=== PATIENT | female | born 1980 | race Two or more races ===

== ENCOUNTER → 2025-06-12 | Outpatient (CLI) | payer MEDICAID, SELFPAY ==
--- NOTE | 2025-06-12 09:30 | XR_ITS ---
Examination: Screening digital mammography, bilateral Computer aided detection 3-D breast Tomosynthesis, bilateral Date and time of exam: 10 5, 10:07 a.m. Comparisons: None available. If prior mammograms can be obtained recommend comparison with today's exam. Indications: Screening Technique: Nonmagnified MLO, CC views of the breasts to been obtained, reconstructed from 3-D Tomosynthesis images. R2 computer aided detection program utilized for evaluation of suspicious masses and/or abnormal calcifications. 3-D Tomosynthesis images obtained. Technologist: Findings: The breasts are heterogeneously dense, which may obscure small masses. No evidence of abnormal masses or suspicious calcifications. Impression: BI-RADS category 1: Negative findings (within normal) Recommend 1 year follow-up mammogram
== END | disposition home or self-care (01) ==
LOC: CDIM 09:50
PROVIDERS: Referring Provider Physician Assistant Medical; Visit Provider Physician Assistant Medical
DX: Z12.31 Encounter for screening mammogram for malignant neoplasm of breast (principal); R92.313 Mammographic fatty tissue density, bilateral breasts
CPT/HCPCS: 77063; 77067

== ENCOUNTER 2025-07-08 20:31 | Emergency (ER) | payer MEDICAID, SELFPAY ==
[2025-07-08] VITALS (10 sets, daily range): BP systolic 137–222; BP diastolic 83–122; PULSE 54–80; RESP 16–18; TEMP 37–37.8; O2SAT 93–99; BMI 30.7
--- NOTE | 2025-07-08 21:01 | EKG_ITS ---
[facility] Test Date: 2025-07-08 Pat Name: TOAN VAZQUEZ Department: Room: - Gender: Female [employer]: : 1980 Requested By: ED Temporary Provider Order Number: [id number] Reading MD: ED Temporary Provider Measurements Intervals [place] Rate: 73 P: 22 [place]: 132 QRS: 27 QRSD: 81 T: 21 QT: 402 QTc: 445 Interpretive Statements SINUS RHYTHM WITH SINUS ARRHYTHMIA Compared to ECG 05/28/2023 13:51:11 No significant changes /store/S0/[id number].pdf
--- NOTE | 2025-07-08 21:13 | PD.EDADULT ---
ED General RME/HPI General Chief complaint: General Adult/Misc Complain Stated complaint: HIGH BLOOD PRESSURE, HEAD PRESSURE Time Seen by Provider: 07/08/25 21:13 Arrival date/time: 07/08/25 20:31 RME / HPI RME / HPI narrative: Dr. Tinoco?s Main ED Evaluation: 45yo female with longstanding history HTN on verapamil and losartan, took her usual medications this AM and developed a headache described as throbbing with right facial paresthesias x 1 hour INTERVENTIONAL SALE CONSULTANT. Upon taking her blood pressure, there was noted marked elevation in the 200/120 range prompting her to take a second dose of her losartan INTERVENTIONAL SALE CONSULTANT. No confusion, dysarthria, focal UE/LE motor weakness, or gait disturbance. Related Data Home Medications ?Medication ?Instructions ?Recorded ?Confirmed amlodipine 5 mg tablet 5 mg PO QDAY 03/22/20 03/22/20 losartan 100 1 tab PO QDAY 03/22/20 03/22/20 mg-hydrochlorothiazide 25 mg tablet Previous Rx's ?Medication ?Instructions ?Recorded hydrocodone 5 mg-acetaminophen 325 1 tab PO BID PRN pain #8 tabs 09/29/22 mg tablet ibuprofen 600 mg tablet 600 mg PO TID PRN pain #14 tabs 09/29/22 Allergies Allergy/AdvReac Type Severity Reaction Status Date / Time No Known Allergies Allergy Verified 07/08/25 20:33 Review of Systems Review of Systems Systems Reviewed: All systems reviewed, normal except as documented Past Medical History Past Medical History NEUROLOGIC: Negative Neurological Disorders or Seizures CARDIAC: Positive Cardiac Disorders, Hypercholesterolemia (STOP 2019 PER ) and Hypertension (TAKES MED); Negative Congestive Heart Failure, Edema, Cellulitis or Varicose Veins RESPIRATORY: Negative Chronic Obstructive Pulmonary Disease (COPD), Pneumonia, Tuberculosis or Sleep Apnea GASTROINTESTINAL: Positive Gastrointestinal Disorders and Gall Bladder Disease (FOR THIS PROC); Negative Hepatitis GENITOURINARY: Negative Genitourinary Disorders or Renal Disease REPRODUCTIVE: Positive Previous Pregnancies () MUSCULOSKELETAL: Negative Musculoskeletal Disorders ENDOCRINE: Positive Endocrine Disorders; Negative Diabetes Mellitus Type 1, Diabetes Mellitus Type 2 or Hypothyroidism HEMATOLOGIC: Negative Blood Disorders OTHER HISTORY: Negative Hospitalization, Autoimmune Disease, Shingles, Falls, Anesthesia Reactions, Chemotherapy, Radiation Therapy, MRSA, Chicken Pox, Measles, Mumps or Cancer Family History FAMILY HISTORY: Positive Family Respiratory Disorders (FATHER (ASTHMA)), Family Cardiac Disorders (MOTHER,FATHER,BROTHER (HTN)) and Family Surgery (MOTHER,BROTHER); Negative Family Psychiatric Problems, Family Gastrointestinal Problems, Family Cancer or Family Anesthesia Reaction Surgical History SURGICAL: Negative Pacemaker Social History SMOKING STATUS: Never smoker ED Exam Narrative Physical exam: GENERAL APPEARANCE: alert and oriented x 4, well-developed, well-nourished, no acute distress VITALS: All vitals were reviewed and the pulse ox is 99% on room air, which is normal according to my interpretation. Markedly hypertensive. HEENT: Normocephalic, atraumatic; pupils equal, round, reactive to light; EOMI; mucous membranes pink, moist; oropharynx clear FUNDOSCOPIC: sharp disc margins, no retinal hemorrhage, + AV nickings NECK: Supple LUNGS: CTABL; no wheezes, no rales, no rhonchi HEART: Regular rate, regular rhythm; normal S1, S2; no murmurs ABDOMEN: non distended; soft, no tenderness EXTREMITIES: atraumatic; no edema NEUROLOGIC: awake; alert and oriented x4; cranial nerves II-XII grossly intact; no focal sensory or motor deficits PSYCHIATRIC: appropriate mood and affect SKIN: warm, dry, normal color; no rashes Course Quality Measures none Orders Category Date Time Status Silk Soaker Q4H START 00 Care 07/08/25 21:09 Active Insert IV NOW Care 07/08/25 21:01 Active EKG (ED Only) Stat Exams 07/08/25 21:01 Draft CBC Stat Lab 07/08/25 21:15 Completed CMP [Comprehensive Metabolic Panel] Stat Lab 07/08/25 21:15 Completed HCG Qualitative,Urine Stat Lab 07/08/25 22:14 Completed Troponin I Stat Lab 07/08/25 21:15 Completed Urinalysis, C/S if Indicated Stat Lab 07/08/25 22:14 Completed Morphine* Inj Med 07/08/25 21:25 Discontinued 4 mg IVP X1 ONE Nitroglycerin Oint 2% [Nitro-paste Oint 2%] Med 07/08/25 21:25 Discontinued 1 inch TOP X1 ONE Prochlorperazine Inj [Compazine Inj] Med 07/08/25 21:25 Discontinued 5 mg IV X1 ONE Vital Signs Vital signs: Vital Signs Temperature 100.1 F 07/08/25 20:38 Pulse Rate 80 07/08/25 20:38 Respiratory Rate 17 07/08/25 20:38 Blood Pressure 222/122 H 07/08/25 20:38 Pulse Oximetry (%) 98 07/08/25 20:38 Oxygen Delivery Method Room Air 07/08/25 20:38 Critical Care Time Critical Care Time Critical Care Time: Yes Total Critical Care Time (min.): 40 Attestation: The high probability of sudden, clinically significant deterioration in the patient?s condition required the highest level of my preparedness to intervene urgently. The services I provided to this patient were to treat and/or prevent clinically significant deterioration. Services included the following: chart data review, reviewing nursing notes and/or old charts, documentation time, network relations consultant collaboration regarding findings and treatment options, medication orders and management, direct patient care, vital sign assessments and ordering, interpreting and reviewing diagnostic studies and lab tests. Aggregate critical care time includes only time during which I was engaged in work directly related to the patient?s care, as described above, whether at bedside or elsewhere in the Emergency Department. It did not include time spent performing other reported procedures or the services of residents, students, nurses or physician assistants. Discharge Plan Plan Patient Disposition: HOME (Self Care) Discharge Disposition comment: Stable Prescriptions/Referrals Prescriptions/Med Rec: No Action amlodipine 5 mg Tablet 5 mg PO QDAY losartan-hydrochlorothiazide 100-25 mg Tablet 1 tab PO QDAY ibuprofen 600 mg tablet 600 mg PO TID PRN (Reason: pain) Qty: 14 0RF hydrocodone-acetaminophen 5-325 mg tablet 1 tab PO BID MDD 2 PRN (Reason: pain) Qty: 8 0RF Referrals: Brian Patel FNP-C [Primary Care Provider] - In 1 week Problem List Clinical Impression: Accelerated hypertension Impression comment: Accelerated hypertension Patient/Caregiver Discharge Instructions Discharge Activity: activity as tolerated Diet Instructions: Low-salt Education Materials: Controlling High Blood Pressure, Prevention Guidelines Women ... Additional Instructions: Continue to monitor blood pressure twice daily. Increase amlodipine to 5 mg twice daily should systolic blood pressure be greater than 160 or diastolic greater than 100. Continue to log blood pressures twice daily and follow-up with primary care doctor in 7 to 10 days. Return if worsening. Print Language: Amharic Stand Alone Forms: Hannah Award Info., Patient Portal Info Letter MDM Narrative MDM hospital course (for use when minimal MDM required): [place] Attestation: 07/08/25 - I, Valeria Anguiano am scribing for and in the presence of Dr. Tinoco. 45yo female with longstanding history HTN on verapamil and losartan, took her usual medications this AM and developed a headache described as throbbing with right facial paresthesias x 1 hour INTERVENTIONAL SALE CONSULTANT. Upon taking her blood pressure, there was noted marked elevation in the 200/120 range prompting her to take a second dose of her losartan INTERVENTIONAL SALE CONSULTANT. Please see PE findings. Labs demonstrated elevated WBC count 16.8, Hgb 13.5, normal Plt count, no left shift or bandemia. Elevated WBC count is likely due to demargination 2/2 stress. Troponin undetected. EKG without signs of ischemia, although with evidence of LVH. UA did demonstrate proteinuria. Patient placed on laboratory monitor, is markedly hypertensive, and was given topical nitrates and low dose narcotic analgesics/antiemetics with gradual reduction of blood pressure and near complete resolution of symptoms. Blood pressure is now controlled with systolic blood pressure of 137 and is considered stable for discharge. Patient is encouraged to monitor her blood pressure at home twice daily and increase her amlodipine to BID if systolic is >160 or diastolic is >100. Clinical Information Provided by: patient Medical Records reviewed [facility] (Per chart review, patient was seen here on 05/28/23 for hypertension.) Meds/Rx considered, not ordered None Labs/Rad/Tests considered, not ordered None Chronic Illness/Social Conditions Explain: Hx HTN EKG Interpretation EKG #1: EKG Interpretation: EKG done at 2309, sinus rhythm, 73, no acute pathological ST segment changes, no ectopy, normal intervals, normal axis, evidence of LVH by voltage criteria, according to my interpretation. Labs Labs: interpreted by me Imaging Imaging interpretation: none Medication Administration(s) Medication Administration History Discontinued Medications Morphine Sulfate (Morphine Sulf Inj 4 Mg/Ml Vial) 4 mg IVP X1 ONE Stop: 07/08/25 21:26 Last Admin: 07/08/25 21:53 Dose: 4 mg Documented By: NELIA Nitroglycerin (Nitroglycerin Oint 2% 1 Inch Packet) 1 inch TOP X1 ONE Stop: 07/08/25 21:26 Last Admin: 07/08/25 21:52 Dose: 1 inch Documented By: NELIA Prochlorperazine Edisylate (Prochlorperazine Inj 5 Mg/Ml Vial 2 Ml) 5 mg IV X1 ONE; Protocol Stop: 07/08/25 21:26 Last Admin: 07/08/25 21:54 Dose: 5 mg Documented By: NELIA see above Diagnosis Differential Diagnosis ED Complaint MDM: uncontrolled hypertension, hypertensive emergency, stress-induced headache
[2025-07-08 21:35] LABS: Basophils # (Auto) 0.1 Thou/mm3 (0.0-0.2); Basophils % (Auto) 0 % (0-2.5); Eosinophils # (Auto) 0.0 Thou/mm3 (0.0-0.5); Eosinophils % (Auto) 0 % (0-10); Hematocrit 41.7 % (36.0-46.0); Hemoglobin 13.5 g/dL (12.0-16.0); Immature Granulocytes Auto 0.12 Thou/mm3 (0.00-0.00); Lymphocytes # (Auto) 1.7 Thou/mm3 (1.0-4.8); Lymphocytes % (Auto) 10 % (10-50); Mean Corpuscular HGB Conc 32.4 g/dl (31.0-37.0); Mean Corpuscular Hemoglobin 26.8 pg (25.0-35.0); Mean Corpuscular Volume 83 fL (80-100); Monocytes # (Auto) 1.7 Thou/mm3 (0.0-0.8); Monocytes % (Auto) 10 % (0-12); Neutrophils # (Auto) 13.3 Thou/mm3 (1.8-7.7); Neutrophils % (Auto) 79 % (37-80); Nucleated Red Blood Cell # 0.00 Thou/mm3 (0.00-0.00); Nucleated Red Blood Cell % 0 /100 WBC (0); Platelet Count 200 Thou/mm3 (140-440); RDW Standard Deviation 41.7 fL (36.4-46.3); Red Blood Count 5.03 Miln/mm3 (4.00-5.20); White Blood Count 16.8 Thou/mm3 (3.6-11.0)
[2025-07-08] MEDS: NITROGLYCERIN OINT 2% 1 INCH PACKET TOP (21:52)
[2025-07-08] MEDS: MORPHINE SULF INJ 4 MG/ML VIAL IVP (21:53)
[2025-07-08] MEDS: PROCHLORPERAZINE INJ 5 MG/ML VIAL 2 ML IV (21:54)
[2025-07-08 21:57] LABS: Alanine Aminotransferase 26 U/L (10-49); Albumin, Serum 4.9 gm/dL (3.5-5.0); Albumin/Globulin Ratio 1.9 (1.2-2.2); Alkaline Phosphatase 106 U/L (46-116); Anion Gap 9 (7-16); Aspartate Amino Transferase 17 U/L (0-34); BUN/Creatinine Ratio 18 Ratio (12-20); Bilirubin,Total 0.3 mg/dL (0.3-1.2); Blood Urea Nitrogen 20 mg/dL (9-23); Calcium 9.6 mg/dL (8.3-10.6); Calcium (Corrected) 9.6 mg/dL (8.5-10.1); Carbon Dioxide 29.3 mMol/L (20.0-31.0); Chloride 102 mMol/L (98-107); Creatinine (Component) 1.1 mg/dL (0.6-1.3); Estimated Creatinine Clearance 56.9 mL/min (>60); Globulin 2.6 gm/dL (2.3-3.5); Glucose 124 mg/dL (74-106); Osmolality,Calculated 283 (275-295); Potassium 3.5 mMol/L (3.4-5.1); Sodium 140 mMol/L (136-145); Total Protein 7.5 gm/dL (5.7-8.2); Troponin I < 0.002 ng/mL (0.0-0.045); eGFR > 60 See Note
[2025-07-08 22:21] LABS: Collection Type, Urine Clean Catch
[2025-07-08 22:30] LABS: HCG Qualitative,Urine Negative
[2025-07-08 22:33] LABS: Amorphous Crystals,Urine Present (Absent); Bilirubin,Urine Negative (Negative); Blood,Urine Negative (Negative); Clarity,Urine Clear (Clear/Hazy); Color,Urine Lt-Yellow (Lt Yel-Yel); Culture Indicated,Urine Not Indicated; Glucose, Urine Negative (Negative); Hyaline Casts,Urine < 1 /hpf (0-1); Ketones,Urine Negative (Negative); Leukocyte Esterase,Urine Negative (Negative); Nitrite,Urine Negative (Negative); PH,Urine 7.0 (5.0-7.0); Protein,Urine 2+ (Neg - Trace); RBC,Urine 7 /hpf (0-3); Specific Gravity,Urine 1.019 (1.001-1.035); Squamous Epithelial Cell,Urine 1 /hpf (0-5); Urobilinogen,Urine Negative mg/dL (0.0-1.0); WBC,Urine 5 /hpf (0-5)
--- NOTE | 2025-07-08 23:57 | PC.NURSE ---
shortly after meds were given, pt fell aseep. bp has improved. holloway is gone. pt appears in NAD.
[2025-07-09 00:08] VITALS: BP 144/83; PULSE 57; RESP 19; TEMP 36.8; O2SAT 96
== END 2025-07-09 00:29 | disposition home or self-care (01) ==
PROVIDERS: Emergency Provider Emergency Medicine
DX: I10 Essential (primary) hypertension (principal)
CPT/HCPCS: 36415; 80053; 81001; 81025; 84484; 85025; 96374; 99283; J0780; J2270; A9270